=== PATIENT | male | born 1955 | race Caucasian/White ===

== ENCOUNTER 2022-01-07 21:42 | Emergency (ER) | payer MEDICARE, SELFPAY ==
[2022-01-07 21:45] VITALS: PULSE 57; RESP 14; TEMP 36.7; O2SAT 99; BMI 27.1
[2022-01-07 21:52] VITALS: BP 131/62
--- NOTE | 2022-01-07 22:02 | DI.CT.S_ITS ---
PROCEDURE: CT ABDOMEN PELVIS W CON INDICATIONS: lower abdominal pain TECHNIQUE: After the administration of IV contrast, axial sections were acquired from the lung bases to the pubic symphysis. Coronal and sagittal reformats were performed. For radiation dose reduction, the following was used: automated exposure control, adjustment of mA and/or kV according to patient size. COMPARISON: None. FINDINGS: Image quality: Excellent. Lung bases: There is minimal dependent atelectasis. Heart: Heart is normal in size. ABDOMEN: Liver: No mass lesion. Gallbladder: There are few calcified gallstones in the gallbladder without wall thickening or pericholecystic fluid. Biliary ducts: No biliary ductal dilatation. Pancreas: Unremarkable. Spleen: Normal in size. Adrenal Glands: No adrenal nodules. Kidneys and Ureters: No hydronephrosis. Stomach and Bowel: Stomach and small bowel loops are normal in caliber and wall thickness. No pericecal inflammatory changes to suggest acute appendicitis. There is colonic diverticulosis without definite acute diverticulitis. Mild segmental colonic wall thickening in the sigmoid colon is consistent with a nonspecific mild colitis. Peritoneum: No abnormal intraperitoneal fluid. No free air. Ventral Wall: No hernia. Abdominal Nodes: No retroperitoneal or mesenteric adenopathy by size criteria. Vessels: Aorta and inferior vena cava are normal in size. PELVIS: Pelvic Organs: There is marked heterogeneous enlargement of the prostate. Bladder: The bladder wall appears normal in thickness. No calcified urinary stones in the bladder. Pelvic Nodes: No enlarged lymph nodes. Miscellaneous: No inguinal hernias are seen. Bones: Visualized osseous structures demonstrate no suspicious focal lesions. IMPRESSION: 1. Segmental colonic wall thickening in the sigmoid colon consistent with a mild nonspecific colitis. 2. Colonic diverticulosis without definite acute diverticulitis. 3. Cholelithiasis without CT evidence of acute cholecystitis. 4. Marked heterogeneous enlargement of the prostate. Dictated by: Fabien Hernandez M.D. on 01/07/2022 at 23:07 Approved by: Fabien Hernandez M.D. on 01/07/2022 at 23:12
--- NOTE | 2022-01-07 22:18 | PC.NURSE ---
Patient went to car to grab laptop to verify lab results from earlier at clinic
--- NOTE | 2022-01-07 23:25 | ED_ITS ---
HPI - Abdominal Pain General Chief Complaint: Abdominal Pain Stated Complaint: Abd pain Time Seen by Provider: 01/07/22 23:23 Source: patient Mode of arrival: Ambulatory History of Present Illness HPI narrative: Patient here from primary care office for evaluation appendicitis versus diverticulitis. Discomfort of the abdomen started this past weekend. Has history of diverticulitis. He thought it might have felt the same. No nausea v omiting diarrhea fever chills. No urinary complaints. [place] I did review on his laptop. White cell count is normal. CMP otherwise reassuring. Patient states he did receive to antibiotic shots in the buttocks. And a pill before leaving the office. He does not recall what those antibiotics were. He states pain is better. The laboratory results are with a [facility] Related Data Allergies Allergy/AdvReac Type Severity Reaction Status Date / Time Sulfa (Sulfonamide AdvReac Intermediate Vomiting Verified 01/07/22 21:52 Antibiotics) Review of Systems Review of Systems Narrative: GENERAL: Denies chills, fatigue, malaise, fever, sweats. HEENT: Denies sinus pain, ear pain, sore throat RESPIRATORY: Denies dyspnea, cough CARDIOVASCULAR: Denies chest pain, palpitations GASTROINTESTINAL: Denies nausea, vomiting, positive abdominal pain : Denies dysuria, frequency, hematuria MUSCULOSKELETAL: denies muscle or bony pain SKIN: Denies rash, skin lesions NEUROLOGIC: Denies weakness, numbness ROS Unobtainable: All systems reviewed & are unremarkable except as noted in HPI and below Patient History Social History Smoking Status: Never smoker Smoking Status: Never smoker alcohol intake frequency: 0-2 drinks per day Substance Use Type: does not use Exam Narrative Exam Narrative: GENERAL: in no distress, not toxic not dyspneic HEAD: Normocephalic. EYES: Pupils equal round No scleral icterus. ENT: Mucous membranes moist. NECK: Trachea midline. CARDIOVASCULAR: Regular rate and rhythm without murmurs RESPIRATORY: Clear to auscultation. Breath sounds equal bilaterally. No wheezes, rales, or rhonchi. GASTROINTESTINAL: Abdomen soft, mild diffuse tenderness of the abdomen, no McBurney point tenderness. No peritoneal signs. Bowel sounds are present. EXTREMITIES: No gross deformities. BACK: No flank tenderness. NEURO: AOx4. SKIN: Warm and dry PSYCH: Not anxious, is cooperative Initial Vital Signs Initial Vital Signs: Vital Signs Temperature 98.1 F 01/07/22 21:45 Pulse Rate 57 L 01/07/22 21:45 Respiratory Rate 14 01/07/22 21:45 Pulse Oximetry 99 01/07/22 21:45 Oxygen Delivery Method 01/07/22 21:45 Course Course Course Narrative: No new issues during course of stay Orders Ordered: ED Orders 01/07/22 22:02 CT abdomen pelvis w con Stat Discontinued Medications Sodium Chloride (Normal Saline 0.9%) 1,000 mls @ 1,000 mls/hr IV BOLUS ONE Stop: 01/08/22 00:22 Last Admin: 01/07/22 23:49 Dose: Not Given Documented By: NR Sodium Chloride (Normal Saline 0.9%) 500 mls @ 1,000 mls/hr IV BOLUS ONE Stop: 01/08/22 00:09 Last Infusion: 01/08/22 00:29 Dose: 0 mls/hr Documented By: Admin: 01/07/22 23:48 Dose: 1,000 mls/hr Documented By: DEEJAY Reevaluation(s) Reevaluation #1: Reviewed results of blood work from earlier today with patient as well as CT scan from [facility] [place] here. Pain is much improved according to patient. He is not want to start any antibiotics at this time. He would like to contact his primary care in the office tomorrow whether to continue them or not as he states he is feeling better at this time. Time: 23:45 Vital Signs Vital signs: Vital Signs - 8 hr 01/07/22 21:45 01/07/22 21:52 Temperature 98.1 F Pulse Rate 57 L Respiratory Rate 14 Blood Pressure 131/62 Pulse Oximetry 99 Oxygen Delivery Method Room Air MDM - Abdominal Pain Differential Diagnosis Differential diagnosis: Likely abdominal pain, acute appendicitis, constipation, diverticulitis, pancreatitis and small bowel obstruction Imaging Data CT scan - abdomen/pelvis: Radiologist's Impression: [address] [address] [address] Scan Report Signed Patient: Jaspreet Davis MR#: [id number] : 1955 Acct:[id number] Age/Sex: 66 / M Date of Service: 01/07/22 Loc: ED Accession Number: [id number] ?? Procedure: CT abdomen pelvis w con Ordering Provider: Dom Payne MD PROCEDURE:? CT ABDOMEN PELVIS W CON ? INDICATIONS:? lower abdominal pain ? TECHNIQUE:? After the administration of IV contrast, axial sections were acquired from the lung bases to the pubic symphysis.? Coronal and sagittal reformats were performed.? For radiation dose reduction, the following was used:? automated exposure control, adjustment of mA and/or kV according to patient size. ? COMPARISON:? None. ? FINDINGS:? Image quality:? Excellent.? ? Lung bases:? There is minimal dependent atelectasis.? ? Heart:? Heart is normal in size. ? ? ABDOMEN: Liver:? No mass lesion. Gallbladder:? There are few calcified gallstones in the gallbladder without wall thickening or pericholecystic fluid. Biliary ducts:? No biliary ductal dilatation.? ? Pancreas:? Unremarkable.? ? Spleen:? Normal in size.? ? Adrenal Glands:? No adrenal nodules.? ? Kidneys and Ureters:? No hydronephrosis.? ? ? Stomach and Bowel:? Stomach and small bowel loops are normal in caliber and wall thickness.? No pericecal inflammatory changes to suggest acute appendicitis.? There is colonic diverticulosis without definite acute diverticulitis.? Mild segmental colonic wall thickening in the sigmoid colon is consistent with a nonspecific mild colitis. Peritoneum:? No abnormal intraperitoneal fluid.? No free air.? ? Ventral Wall: ? No hernia.? Abdominal Nodes:? No retroperitoneal or mesenteric adenopathy by size criteria.? Vessels:? Aorta and inferior vena cava are normal in size.? ? PELVIS: Pelvic Organs:? There is marked heterogeneous enlargement of the prostate.? ? Bladder:? The bladder wall appears normal in thickness.? No calcified urinary stones in the bladder. Pelvic Nodes: No enlarged lymph nodes.? Miscellaneous: No inguinal hernias are seen. ? ? ? Bones:? Visualized osseous structures demonstrate no suspicious focal lesions. ? ? IMPRESSION:? ? 1. Segmental colonic wall thickening in the sigmoid colon consistent with a mild nonspecific colitis. ? 2. Colonic diverticulosis without definite acute diverticulitis. ? 3. Cholelithiasis without CT evidence of acute cholecystitis. ? 4. Marked heterogeneous enlargement of the prostate.? ? ? Dictated by: Fabien Hernandez M.D. on 01/07/2022 at 23:07 ? ? Approved by: Fabien Hernandez M.D. on 01/07/2022 at 23:12 ? [facility] Narrative Medical decision making narrative: Appropriate for discharge home. Exam and laboratory studies are reassuring. CT scan imaging could be early development of sigmoid diverticulitis, there is no abscess. Patient does not want to start any antibiotics at this time. He would like to talk to his family doctor tomorrow morning whether to resume them or not. Pain control at time of discharge. Return precautions reviewed with him. He desires discharge home Discharge Plan Departure Patient Disposition: Home Clinical Impression: Colitis Instructions: DI for Colitis Activity Restrictions/Additional Instructions: Call or see your family doctor in the morning for re-evaluation of your abdominal pain and whether to continue antibiotics. His office can call here for results of CT scan. Return if worse or for any questions or concerns. Keep well hydrated. May continue home medications. Referrals: Zach Nieto MD [Primary Care Provider] - Visit Report Forms: Patient Portal/API
[2022-01-07] MEDS: SODIUM CHLORIDE 0.9% 500 ML 1000 ML IV (23:48)
== END 2022-01-08 00:30 | disposition home or self-care (01) ==
PROVIDERS: Emergency Provider Emergency Medicine; PCP Student in an Organized Health Care Education/Training Program; Referring Provider Student in an Organized Health Care Education/Training Program
DX: K52.9 Noninfective gastroenteritis and colitis, unspecified (principal)
CPT/HCPCS: 74177; 96360; 99284; Q9967